=== PATIENT | female | born 1985 | race Caucasian/White ===

== ENCOUNTER 2018-06-05 18:28 | Emergency (ER) | payer OTHER ==
[~2018-06-05 18:28] MED LIST: ACE325 PO; ALB18R INH; BIRTH CONTROL; CETI-176 PO; CIPR-326 PO; CLON-331 PO; DIPH-740 PO; ERYOO OU; ESCI20TA38 PO; ETON1VAG7 VG; FLUO40CA76 PO; HYDR-4228 PO; IBUP-1618 PO; IBUP800T37 PO; KET10; LAMO200T45 PO; LISD40PT PO; LOR5/325 PO; LORA-802 PO; METHY10 PO; MIDO10TA PO; NAPR-1043 PO; ONDA4TAB SL; OXYC-865 PO; PROZAC; VAL500 PO; VALTREX
--- NOTE | 2018-06-05 18:42 | ER Report ---
History and Physical Time Seen By MD: 18:38 Hx. of Stated Complaint: STOOD UP UNDERNIETH A SHELF, HIT HEAD, VOMITED, DIZZY. THIS HAPPENED ON SUNDAY NIGHT. DIZZY WON'T GO AWAY, HEADACHE HPI/ROS CHIEF COMPLAINT: Head injury HISTORY OF PRESENT ILLNESS: This is a 33-year-old female who presents to the emergency department for a head injury. Patient states that this past Sunday around 5:45 in the morning she had a backpack on her shoulder at work stood up and hit her head on the side of a cabinet, patient is unsure if she actually had a positive LOC. Since then the patient has had increased left temporal discomfort, she did have one episode of vomiting immediately after the injury. According to the patient's spouse at the bedside she had an additional 2-3 episodes of vomiting later that day. Patient does not recall those episodes. Patient states she's had some increased confusion and memory impairment this week. Patient does have a small abrasion to the left parietal region at the hairline. She is unsure if this is related to the injury or if this is related to the lack of sleep. Patient denies fevers or chills. No chest pain or shortness of breath. REVIEW OF SYSTEMS: Constitutional: No fever, no chills. Eyes: No discharge. ENT: No sore throat. Cardiovascular: No chest pain, no palpitations. Respiratory: No cough, no shortness of breath. Gastrointestinal: As above. Genitourinary: No hematuria. Musculoskeletal: No back pain. Skin: No rashes. Neurological: As above. Allergies: Coded Allergies: No Known Drug Allergies (Verified , 06/05/18) Home Meds Reported Medications Clonazepam (CLONAZEPAM) 0.5 Mg Tablet, 0.5 MG PO BID, #6 TAB 01/29/18 Albuterol Sulfate (VENTOLIN HFA) 18 Gm Inh, 1-2 PUFF INH 3-4XD, INH 01/29/18 Cetirizine Hcl (ZYRTEC) 10 Mg Tablet, 10 MG PO PRN, TAB 12/20/15 Lisdexamfetamine Dimesylate (VYVANSE) 40 Mg Capsule, 40 MG PO QAM, CAPSULE 12/20/15 Lamotrigine (LAMOTRIGINE) 200 Mg Tablet, 200 MG PO QHS 12/20/15 Hydroxyzine Hcl (HYDROXYZINE HCL) 50 Mg Tablet, 50 MG PO QHS 12/20/15 Diphenhydramine Hcl (BENADRYL) 25 Mg Capsule, 2 CAP PO QHS, CAPSULE 12/20/15 Loratadine (Claritin) 10 Mg Tablet, 10 MG PO PRN, 0 Refills 07/24/09 Past Medical/Surgical History The patient has a past medical and surgical history of migraines, low blood pressure, asthma, IBS, chronic neck pain, wears glasses, genital herpes, colonoscopy, lymph node biopsy, tonsillectomy. Reviewed Nurses Notes: Yes Hx Smoking: No Smoking Status: Never Smoker Exposure to Second Hand Smoke?: No Hx Substance Use Disorder: No Hx Alcohol Use: Yes (OCC TO FREQ) Constitutional Vital Sign - Last 24 Hours 06/05/18 06/05/18 18:36 21:09 Temp 97.8 Pulse 71 75 Resp 14 16 B/P (MAP) 125/88 131/87 (102) Pulse Ox 94 100 O2 Delivery Room Air Room Air Physical Exam General Appearance: The patient is alert, has no immediate need for airway protection and no signs of toxicity. Eyes: Patient has anisocoria, the left pupil is smaller than the right, the left pupil measuring approximately 3 mm, the right measuring 4. They are both round and reactive to light and accommodation. EOMs intact, no nystagmus. No injection or pallor. ENT, Mouth: Mucous membranes are moist. Respiratory: There are no retractions, lungs are clear to auscultation. Cardiovascular: Regular rate and rhythm, no murmurs, clicks or rubs. Gastrointestinal: Abdomen is soft and non tender, no masses, bowel sounds normal. Neurological: Alert and oriented 4. Moving all extremities. Following all commands. No focal neuro deficits. Cranial nerves II through XII intact. GCS 15. Skin: Warm and dry, no rashes. Musculoskeletal: Neck is supple non tender. Extremities are nontender, nonswollen and have full range of motion. DIFFERENTIAL DIAGNOSIS: After history and physical exam differential diagnosis was considered for headache including but not limited to subarachnoid hemorrhage, concussion, migraine headache, tension headache and infectious causes such as meningitis, pharyngitis and sinusitis. Medical Decision Making EKG/Imaging Imaging HEAD CT: Indication: Injury. Technique: Contiguous axial sections were obtained from the base to the vertex without contrast enhancement. One of the following dose optimization techniques was utilized in the performance of this exam: Automated exposure control; adjustment of the mA and/or kV according to the patient's size; or use of an iterative reconstruction technique. Specific details can be referenced in the facility's radiology CT exam operational policy. Comparison: None. Findings: There is no evidence of intra-axial or extra-axial hemorrhage. No focal areas of decreased or increased attenuation are identified. There is no evidence of mass, edema, or shift of the midline structures. The size, shape, and configuration of the ventricular system are normal. The skeletal structures are intact and unremarkable. There is no evidence of fracture or other acute deformity. The visualized paranasal sinuses and mastoid air cells are clear. Impression: Unremarkable unenhanced head CT. Report Dictated By: Alvarado Mann MD at 06/05/2018 8:06 PM Report E-Signed By: Alvarado Mann MD at 06/05/2018 8:09 PM WSN:[id number] ED Course/Re-evaluation ED Course The patient was admitted to room. A history and physical were obtained. Differential diagnoses were considered. He CT of the brain was negative for any acute intracranial process. I did review the CT report with the patient. I did tell her that this is likely a concussion and will take some time to resolve. I did tell the patient that she should take the next 2 days off of work, minimize screen time and get as much sleep as possible. Patient expressed understanding. Patient denied need for pain medication. Patient was encouraged to return to the ER for any other concerns or worsening symptoms. Decision to Disposition Date: Jun 05, 2018 Decision to Disposition Time: 20:53 Depart Departure Latest Vital Signs Vital Signs Date Time Temp Pulse Resp B/P (MAP) Pulse Ox O2 Delivery O2 Flow Rate FiO2 06/05/18 21:09 75 16 131/87 (102) 100 Room Air 06/05/18 18:36 97.8 Impression: Primary Impression: Concussion Condition: Improved Disposition: HOME OR SELF-CARE Referrals: NAN VALENTIN MD (PCP) Patient Instructions: Concussion (ED) Additional Instructions: My recommendation is to take at least 2 days off of work, plenty of brain rest for the next 2 days, minimize screen time. Drink plenty of water. Get plenty of rest. Continue with your current medications. Try Tylenol for headaches in lieu of ibuprofen. Return to the ER for any other concerns or worsening symptoms. Problem Qualifiers Primary Impression: Concussion Encounter type: initial encounter Loss of consciousness presence/duration: with LOC of unspecified duration Qualified Codes: S06.0X9A - Concussion with loss of consciousness of unspecified duration, initial encounter JEISON ALVES ASSISTANT OPERATOR-BC Jun 05, 2018 18:42
--- NOTE | 2018-06-05 20:13 | RADIOLOGY IMAGING REPORT ---
FACILITY: [facility] PATIENT NAME: Deanna Blanton : 1985 MR: [id number] V: [id number] EXAM DATE: ORDERING PHYSICIAN: JEISON ALVES TECHNOLOGIST: Location: [facility] Patient: Deanna Blanton : 1985 Visit/Account:[id number] Date of Sevice: 06/05/[address]: Indication: Injury. Technique: Contiguous axial sections were obtained from the base to the vertex without contrast enhan cement. One of the following dose optimization techniques was utilized in the performance of this exam: Autom ated exposure control; adjustment of the mA and/or kV according to the patient's size; or use of an i terative reconstruction technique. Specific details can be referenced in the facility's radiology CT exam operational policy. Comparison: None. Findings: There is no evidence of intra-axial or extra-axial hemorrhage. No focal areas of decreased or increased attenuation are identified. There is no evidence of mass, edema, or shift of the midline structures. The size, shape, and configuration of the ventricular system are normal. The skeletal st ructures are intact and unremarkable. There is no evidence of fracture or other acute deformity. The visualized paranasal sinuses and mastoid air cells are clear. Impression: Unremarkable unenhanced head CT. Report Dictated By: Alvarado Mann MD at 06/05/2018 8:06 PM Report E-Signed By: Alvarado Mann MD at 06/05/2018 8:09 PM WSN:[id number]
[2018-06-05 21:09] VITALS: BP 131/87
== END 2018-06-05 21:16 | disposition home or self-care (01) ==
LOC: ER 18:53
DX: S06.0X9A Concussion with loss of consciousness of unspecified duration, initial encounter (principal)
CPT/HCPCS: 70450; 99284

== ENCOUNTER 2018-06-20 09:18 | Emergency (ER) | payer OTHER ==
[2018-06-20 09:22] VITALS: BP 118/76
--- NOTE | 2018-06-20 09:23 | ER Report ---
History and Physical Time Seen By MD: 09:23 HPI/ROS CHIEF COMPLAINT: Follow-up head injury HISTORY OF PRESENT ILLNESS: Patient was seen on June 04 status post a head injury. Review the electronic medical record shows the patient was seen after head injury that occurred around 5:45 in the morning when she stood up and hit her head on the side of a cabinet. It was questionable loss of consciousness. She had had multiple episodes of vomiting later that day. She had some confusion and memory impairment. Her evaluation at that time had a CT scan of the head which was negative for acute pathology. Patient states he's had persistent symptoms including disequilibrium, cognitive impairment nausea. Currently she denies any specific pain or nausea but just feels "off". The symptoms have persisted now she returns to the emergency department for reevaluation. REVIEW OF SYSTEMS: Constitutional: No fever, no chills. Eyes: No discharge. ENT: No sore throat. Cardiovascular: No chest pain, no palpitations. Respiratory: No cough, no shortness of breath. Gastrointestinal: No abdominal pain, no vomiting. Nausea Genitourinary: No hematuria. Musculoskeletal: No back pain. Skin: No rashes. Neurological: Postconcussive syndrome Allergies: Coded Allergies: No Known Drug Allergies (Verified , 06/05/18) Home Meds Active Scripts Ondansetron Hcl (ZOFRAN) 4 Mg Tablet, 4 MG PO Q8H for Nausea, #15 TAB 0 Refills Prov:BRYANNA BUTLER MD 06/20/18 Meclizine Hcl (MECLIZINE HCL) 25 Mg Tablet, 25 MG PO Q8H for vertigo, #20 TAB 0 Refills Prov:BRYANNA BUTLER MD 06/20/18 Reported Medications Clonazepam (CLONAZEPAM) 0.5 Mg Tablet, 0.5 MG PO BID, #6 TAB 01/29/18 Albuterol Sulfate (VENTOLIN HFA) 18 Gm Inh, 1-2 PUFF INH 3-4XD, INH 01/29/18 Cetirizine Hcl (ZYRTEC) 10 Mg Tablet, 10 MG PO PRN, TAB 12/20/15 Lisdexamfetamine Dimesylate (VYVANSE) 40 Mg Capsule, 40 MG PO QAM, CAPSULE 12/20/15 Lamotrigine (LAMOTRIGINE) 200 Mg Tablet, 200 MG PO QHS 3/14/16 Hydroxyzine Hcl (HYDROXYZINE HCL) 50 Mg Tablet, 50 MG PO QHS 12/20/15 Diphenhydramine Hcl (BENADRYL) 25 Mg Capsule, 2 CAP PO QHS, CAPSULE 12/20/15 Loratadine (Claritin) 10 Mg Tablet, 10 MG PO PRN, 0 Refills 07/24/09 Past Medical/Surgical History The patient has a past medical and surgical history of migraines, low blood pressure, asthma, IBS, chronic neck pain, wears glasses, genital herpes, colonoscopy, lymph node biopsy, tonsillectomy. Hx Smoking: No Smoking Status: Never Smoker Exposure to Second Hand Smoke?: No Hx Substance Use Disorder: No Hx Alcohol Use: Yes (OCC TO FREQ) Constitutional Vital Sign - Last 24 Hours 06/20/18 09:22 Temp 98.4 Pulse 65 Resp 16 B/P (MAP) 118/76 Pulse Ox 96 O2 Delivery Room Air Physical Exam General Appearance: The patient is alert, has no immediate need for airway protection and no current signs of toxicity. Eyes: Pupils equal and round no injection. Extraocular muscles are intact and symmetrical Respiratory: Chest is non tender, lungs are clear to auscultation. Cardiac: regular rate and rhythm Gastrointestinal: Abdomen is soft and non tender, no masses, bowel sounds normal. Musculoskeletal: Neck: Neck is supple and non tender. Extremities have full range of motion and are non tender. Skin: No rashes or lesions. Medical Decision Making ED Course/Re-evaluation ED Course 06/20/2018 9:30:50 am patient with persistent concussion-like symptoms including cognitive impairment, disequilibrium, episodic nausea. Plan at this time will be noncontrast MRI of the brain. Patient will likely require follow-up for a postconcussive syndrome. Decision to Disposition Date: Jun 20, 2018 Decision to Disposition Time: 10:42 Depart Departure Latest Vital Signs Vital Signs Date Time Temp Pulse Resp B/P (MAP) Pulse Ox O2 Delivery O2 Flow Rate FiO2 06/20/18 09:22 98.4 65 16 118/76 96 Room Air Impression: Primary Impression: Post concussion syndrome Condition: Condition Unchanged Disposition: HOME OR SELF-CARE Referrals: NAN VALENTIN MD (PCP) New Scripts Ondansetron Hcl (ZOFRAN) 4 Mg Tablet 4 MG PO Q8H for Nausea, #15 TAB 0 Refills Prov: BRYANNA BUTLER MD 06/20/18 Meclizine Hcl (MECLIZINE HCL) 25 Mg Tablet 25 MG PO Q8H for vertigo, #20 TAB 0 Refills Prov: BRYANNA BUTLER MD 06/20/18 Departure Forms: ER Transition Record, Medications Reconciliation, Off Wo rk/School Form, School or Work Release?: Work Number of days to be released: 2 Patient Portal Information Patient Instructions: Post Concussion Syndrome (ED) Additional Instructions: [address] [facility] Sports Medicine Open [address] [place] [address], [facility] [address], [place]azo Call to schedule follow up appointment for post concussive syndrome BRYANNA BUTLER MD Jun 20, 2018 09:23
--- NOTE | 2018-06-20 10:31 | RADIOLOGY IMAGING REPORT ---
FACILITY: [facility] [place] PATIENT NAME: Deanna Blanton : 1985 MR: [id number] V: [id number] EXAM DATE: ORDERING PHYSICIAN: BRYANNA BUTLER TECHNOLOGIST: Location: [facility] [place] Patient: Deanna Blanton : 1985 Visit/Account:[id number] Date of Sevice: 06/20/2018 BRAIN W/O CONTRAST Comparisons: Head CT scan without contrast dated June 05, 2018 Additional pertinent history: Post concussive symptoms TECHNIQUE: Multiplanar, multisequence brain MRI was performed without gadolinium contrast. FINDINGS: Sagittal midline structures and craniocervical junction: Negative. Midline shift: None. Ventricles: Negative. Brain parenchyma: Diffusion weighted imaging: Negative. Gradient sequence: Negative. T2 weighted FLAIR images: Negative. Extra-axial spaces: Negative. Dural venous sinuses and major arterial flow voids: Negative. Mastoid air cells and paranasal sinuses: Negative. Surrounding soft tissues and orbits: Negative. Impression: Normal brain MRI without contrast. Report Dictated By: Clemente Wlalace MD at 06/20/2018 10:25 AM Report E-Signed By: Clemente Wallace MD at 06/20/2018 10:27 AM [id number]
[2018-06-20] MEDS ORDERED: MECL25TA9 PO (10:41)
[2018-06-20] MEDS ORDERED: ONDA4TAB97 PO (10:41)
== END 2018-06-20 10:52 | disposition home or self-care (01) ==
LOC: ER 09:20
DX: F07.81 Postconcussional syndrome (principal)
CPT/HCPCS: 70551; 99284

== ENCOUNTER → 2018-07-18 | Outpatient (CLI) | payer OTHER ==
[~2018-07-18] MED LIST changes: +CAFF200T69 PO; +CHOL500045 PO; +CLOB15OI16 TP; +FLAX100029 PO; +FLU60VIA41 IM; +FLUC150T40 PO; +KET10 PO; +MECL25TA9 PO; +MULT1CAP59 PO; +NALT50TA15 PO; +ONDA4TAB97 PO; +SERT25TA87 PO; +VALA500T66 PO
== END ==
LOC: LAB 10:16
PROVIDERS: ATTEND Obstetrics & Gynecology
DX: B37.3 Candidiasis of vulva and vagina (principal); N89.8 Other specified noninflammatory disorders of vagina
CPT/HCPCS: 87210

== ENCOUNTER → 2018-10-18 | Outpatient (CLI) | payer OTHER ==
[~2018-10-18] MED LIST changes: +ACET500T68 PO; +DIPH-911 PO; +FAMO-67 PO; +FOLI200T11 PO; +LIS50 PO; +PREN-127 PO; +PSEU60TA80 PO; +PYRI100T57 PO; +SERT-1 PO; +UBID100C48 PO
[2018-10-18 10:22] LABS: PLATELET COUNT, AUTOMATED 391 K/uL (150-450)
== END ==
LOC: LAB 09:47
PROVIDERS: ATTEND Obstetrics & Gynecology
DX: Z34.91 Encounter for supervision of normal pregnancy, unspecified, first trimester (principal)
CPT/HCPCS: 36415; 81001; 85025; 86592; 86703; 86762; 86850; 86900; 86901; 87088; 87340

== ENCOUNTER 2018-11-21 06:34 | Emergency (ER) | payer OTHER ==
--- NOTE | 2018-11-21 06:41 | ER Report ---
History and Physical Time Seen By MD: 06:40 (BRYANNA BUTLER MD) HPI/ROS CHIEF COMPLAINT: Dehydration HISTORY OF PRESENT ILLNESS: Patient was seen by Dr. Nan Bradley on 10/18/2018 for initial OB visit 1st trimester ultrasound was performed which showed an intrauterine at 7 weeks 5 days gestation. Estimated date of conf inement is 06/01/2019. Patient has a history of genital herpes and there was discussion at that visit about starting antiviral suppression. Patient also has a history of psychiatric issues and is followed as an outpatient for bipolar disorder, anxiety and ADHD. Patient now presents to the emergency department with complaint of "dehydration". Patient states over the past 3 days she's been having nausea along with decreased appetite and vomiting specifically more in the morning. Patient works night shifts at the [employer] and states that she felt ill this morning so she decided to come to the emergency department. Routine OB is actually scheduled for tomorrow. Patient denies any fever she denies flulike symptoms such as fever or headache or body aches. REVIEW OF SYSTEMS: Constitutional: No fever, no chills. Eyes: No discharge. ENT: No sore throat. Cardiovascular: No chest pain, no palpitations. Respiratory: No cough, no shortness of breath. Gastrointestinal: No abdominal pain, nausea with vomiting and a few episodes of watery diarrhea Genitourinary: No hematuria. Musculoskeletal: No back pain. Skin: No rashes. Neurological: No headache. (BRYANNA BUTLER MD) Allergies: Coded Allergies: No Known Drug Allergies (Verified , 11/21/18) Home Meds Active Scripts Ondansetron 4 Mg Odt (ONDANSETRON 4 MG ODT) 4 Mg Tab.rapdis, 4 MG PO Q8H PRN for nausea, #20 TAB Prov:BRYANNA PENNINGTON MD 11/21/18 Fluconazole (DIFLUCAN) 150 Mg Tablet, 150 MG PO NOW, #1 TAB 0 Refills Prov:NAN BRADLEY MD 10/23/18 Ondansetron Hcl (ZOFRAN) 4 Mg Tablet, 4 MG PO Q6H PRN for nausea, #30 TAB 0 Refills Prov:NAN BRADLEY MD 10/23/18 Valacyclovir Hcl (VALTREX) 500 Mg Tablet, 500 MG PO BID, #6 TAB 4 Refills Take one tablet po BID for 3 days upon initial symptoms of HSV outbreak Prov:NAN BRADLEY MD 07/18/18 Reported Medications Acetaminophen (TYLENOL EXTRA STRENGTH) 500 Mg Tablet, 500 MG PO PRN, TAB 10/18/18 Famotidine (FAMOTIDINE) 20 Mg Tablet, 20 MG PO PRN, TAB 10/18/18 Pseudoephedrine Hcl (PSEUDOEPHEDRINE HCL) 60 Mg Tablet, 60 MG PO DAILY 10/18/18 Lisdexamfetamine Dimesylate (VYVANSE) 50 Mg Capsule, 50 MG PO QDAY, CAPSULE 10/18/18 Sertraline Hcl (ZOLOFT) 50 Mg Tablet, 1 TAB PO QDAY, TAB 10/18/18 Pyridoxine Hcl (VITAMIN B-6) 100 Mg Tablet, 100 MG PO BID 10/18/18 Diphenhydramine Hcl (UNISOM) 50 Mg Capsule, 50 MG PO QHS, CAPSULE 10/18/18 Ubidecarenone (COQ-10) 100 Mg Capsule, 150 MG PO, CAPSULE 10/18/18 Folic Acid/Multivit-Minerals (Women's Multivitamin Gummies) 200 Mcg Tab.chew, 1 EACH PO DAILY 10/18/18 Vits W-Ca,Fe,Fa(<1MG) ( VITAMINS) 1 Each Tablet, 1 EACH PO DAILY, TAB 10/18/18 Cholecalciferol (Vitamin D3) (VITAMIN D) 5,000 Unit Tablet, 8000 UNIT PO DAILY 07/18/18 Flaxseed Oil (FLAXSEED OIL) 1,000 Mg Capsule, 1400 MG PO DAILY, CAPSULE 07/18/18 Multivitamin (MULTIVITAMINS) 1 Each Capsule, 1 EACH PO, CAPSULE 07/18/18 Caffeine (CAFFEINE) 200 Mg Tablet, 100 MG PO QDAY 07/18/18 Clonazepam (CLONAZEPAM) 0.5 Mg Tablet, 0.5 MG PO BID, #6 TAB 01/29/18 Albuterol Sulfate (VENTOLIN HFA) 18 Gm Inh, 1-2 PUFF INH 3-4XD, INH 01/29/18 Cetirizine Hcl (ZYRTEC) 10 Mg Tablet, 10 MG PO PRN, TAB 12/20/15 Lamotrigine (LAMOTRIGINE) 200 Mg Tablet, 200 MG PO QHS 12/20/15 Hydroxyzine Hcl (HYDROXYZINE HCL) 50 Mg Tablet, 50 MG PO QHS 50-100 mg PO prn 12/20/15 Loratadine (Claritin) 10 Mg Tablet, 10 MG PO PRN, 0 Refills 07/24/09 Discontinued Scripts Clobetasol Propionate (CLOBETASOL PROPIONATE) 15 Gm Oint...g., 1 RONDA TP DAILY, #1 TUBE 2 Refills Apply once daily to affected area Prov:NAN BRADLEY MD 07/18/18 Past Medical/Surgical History History of ADHD, bipolar disorder (BRYANNA BUTLER MD) Hx Smoking: No Smoking Status: Never Smoker Exposure to Second Hand Smoke?: No Hx Substance Use Disorder: No Hx Alcohol Use: Yes (OCC TO FREQ) (BRYANNA BUTLER MD) Constitutional Vital Sign - Last 24 Hours 11/21/18 11/21/18 11/21/18 11/21/18 06:34 06:38 06:39 07:00 Temp 98.4 Pulse 81 79 Resp 16 B/P (MAP) 124/89 (101) 124/89 112/81 (91) Pulse Ox 93 97 O2 Delivery Room Air 11/21/18 11/21/18 11/21/18 11/21/18 07:04 07:30 07:34 08:00 Pulse 79 69 B/P (MAP) 103/68 (80) 120/76 (91) Pulse Ox 97 100 11/21/18 08:04 Pulse 72 Pulse Ox 96 (BRYANNA PENNINGTON MD) Physical Exam General Appearance: The patient is alert, has no immediate need for airway protection and no signs of toxicity. [ ] Eyes: Pupils equal and round no pallor or injection. ENT, Mouth: Mucous membranes are moist. Respiratory: There are no retractions, lungs are clear to auscultation. Cardiovascular: Regular rate and rhythm. [ ] Gastrointestinal: Abdomen is soft and non tender, no masses, bowel sounds normal. Neurological: Awake alert Skin: Warm and dry, no rashes. Musculoskeletal: Neck is supple non tender. Extremities are nontender, nonswollen and have full range of motion. (BRYANNA BUTLER MD) Medical Decision Making Data Points Result Diagram: 11/21/18 0645 11/21/18 0645 Laboratory Hematology Test 11/21/18 06:45 11/21/18 07:57 Red Blood Count 4.46 M/uL (4.17-5.56) Mean Corpuscular Volume 89.1 fL (80.0-96.0) Mean Corpuscular Hemoglobin 30.3 pg (26.0-33.0) Mean Corpuscular Hemoglobin Concent 34.0 g/dL (32.0-36.0) Red Cell Distribution Width 13.2 % (11.5-14.5) Mean Platelet Volume 7.6 fL (7.2-11.1) Neutrophils (%) (Auto) 70.2 % (39.4-72.5) Lymphocytes (%) (Auto) 21.2 % (17.6-49.6) Monocytes (%) (Auto) 7.2 % (4.1-12.4) Eosinophils (%) (Auto) 0.7 % (0.4-6.7) Basophils (%) (Auto) 0.7 % (0.3-1.4) Nucleated RBC Relative Count (auto) 0.0 /100WBC Neutrophils # (Auto) 8.8 K/uL (2.0-7.4) Lymphocytes # (Auto) 2.7 K/uL (1.3-3.6) Monocytes # (Auto) 0.9 K/uL (0.3-1.0) Eosinophils # (Auto) 0.1 K/uL (0.0-0.5) Basophils # (Auto) 0.1 K/uL (0.0-0.1) Nucleated RBC Absolute Count (auto) 0.00 K/uL Sodium Level 134 mmol/L (137-145) Potassium Level 3.3 mmol/L (3.5-5.0) Chloride Level 101 mmol/L (98-107) Carbon Dioxide Level 21 mmol/L (22-31) Blood Urea Nitrogen 7 mg/dl (7-18) Creatinine 0.50 mg/dl (0.52-1.04) Glomerular Filtration Rate Calc > 60.0 Random Glucose 89 mg/dl (75-110) Calcium Level 9.4 mg/dl (8.4-10.2) Total Bilirubin 0.3 mg/dl (0.2-1.3) Aspartate Amino Transf (AST/SGOT) 16 U/L (0-35) Alanine Aminotransferase (ALT/SGPT) 14 U/L (0-56) Alkaline Phosphatase 66 U/L (0-126) Total Protein 7.8 g/dl (6.3-8.2) Albumin 4.4 g/dl (3.5-5.0) Urine Color Yellow Urine Clarity Clear Urine pH 5.0 pH (4.8-9.5) Urine Specific Weare 1.015 Urine Protein Negative mg/dL (NEGATIVE) Urine Glucose (UA) Negative mg/dL (NEGATIVE) Urine Ketones Negative mg/dL (NEGATIVE) Urine Blood Negative (NEGATIVE) Urine Nitrite Negative (NEGATIVE) Urine Bilirubin Negative (NEGATIVE) Urine Urobilinogen Negative mg/dL (0.2-1.9) Urine Leukocyte Esterase Negative (NEGATIVE) Urine RBC 1 /HPF (0-2/HPF) Urine WBC <1 /HPF (0-5/HPF) Urine Squamous Epithelial Cells Many /LPF (</=FEW) Urine Bacteria Negative /HPF (NONE-FEW) Urine Mucus Few /HPF (NONE-FEW) Chemistry Test 11/21/18 06:45 11/21/18 07:57 White Blood Count 12.6 k/uL (4.5-11.0) Red Blood Count 4.46 M/uL (4.17-5.56) Hemoglobin 13.5 g/dL (12.0-16.0) Hematocrit 39.7 % (34.0-47.0) Mean Corpuscular Volume 89.1 fL (80.0-96.0) Mean Corpuscular Hemoglobin 30.3 pg (26.0-33.0) Mean Corpuscular Hemoglobin Concent 34.0 g/dL (32.0-36.0) Red Cell Distribution Width 13.2 % (11.5-14.5) Platelet Count 385 K/uL (150-450) Mean Platelet Volume 7.6 fL (7.2-11.1) Neutrophils (%) (Auto) 70.2 % (39.4-72.5) Lymphocytes (%) (Auto) 21.2 % (17.6-49.6) Monocytes (%) (Auto) 7.2 % (4.1-12.4) Eosinophils (%) (Auto) 0.7 % (0.4-6.7) Basophils (%) (Auto) 0.7 % (0.3-1.4) Nucleated RBC Relative Count (auto) 0.0 /100WBC Neutrophils # (Auto) 8.8 K/uL (2.0-7.4) Lymphocytes # (Auto) 2.7 K/uL (1.3-3.6) Monocytes # (Auto) 0.9 K/uL (0.3-1.0) Eosinophils # (Auto) 0.1 K/uL (0.0-0.5) Basophils # (Auto) 0.1 K/uL (0.0-0.1) Nucleated RBC Absolute Count (auto) 0.00 K/uL Glomerular Filtration Rate Calc > 60.0 Calcium Level 9.4 mg/dl (8.4-10.2) Total Bilirubin 0.3 mg/dl (0.2-1.3) Aspartate Amino Transf (AST/SGOT) 16 U/L (0-35) Alanine Aminotransferase (ALT/SGPT) 14 U/L (0-56) Alkaline Phosphatase 66 U/L (0-126) Total Protein 7.8 g/dl (6.3-8.2) Albumin 4.4 g/dl (3.5-5.0) Urine Color Yellow Urine Clarity Clear Urine pH 5.0 pH (4.8-9.5) Urine Specific Weare 1.015 Urine Protein Negative mg/dL (NEGATIVE) Urine Glucose (UA) Negative mg/dL (NEGATIVE) Urine Ketones Negative mg/dL (NEGATIVE) Urine Blood Negative (NEGATIVE) Urine Nitrite Negative (NEGATIVE) Urine Bilirubin Negative (NEGATIVE) Urine Urobilinogen Negative mg/dL (0.2-1.9) Urine Leukocyte Esterase Negative (NEGATIVE) Urine RBC 1 /HPF (0-2/HPF) Urine WBC <1 /HPF (0-5/HPF) Urine Squamous Epithelial Cells Many /LPF (</=FEW) Urine Bacteria Negative /HPF (NONE-FEW) Urine Mucus Few /HPF (NONE-FEW) Urinalysis Test 11/21/18 07:57 Urine Color Yellow Urine Clarity Clear Urine pH 5.0 pH (4.8-9.5) Urine Specific Weare 1.015 Urine Protein Negative mg/dL (NEGATIVE) Urine Glucose (UA) Negative mg/dL (NEGATIVE) Urine Ketones Negative mg/dL (NEGATIVE) Urine Blood Negative (NEGATIVE) Urine Nitrite Negative (NEGATIVE) Urine Bilirubin Negative (NEGATIVE) Urine Urobilinogen Negative mg/dL (0.2-1.9) Urine Leukocyte Esterase Negative (NEGATIVE) Urine RBC 1 /HPF (0-2/HPF) Urine WBC <1 /HPF (0-5/HPF) Urine Squamous Epithelial Cells Many /LPF (</=FEW) Urine Bacteria Negative /HPF (NONE-FEW) Urine Mucus Few /HPF (NONE-FEW) (BRYANNA PENNINGTON MD) ED Course/Re-evaluation ED Course 11/21/2018 6:55:30 am bedside ultrasound confirms intrauterine with positive movement. Heart rate 150 bpm. Decision to Disposition Date: Nov 21, 2018 Decision to Disposition Time: 09:00 (BRYANNA BUTLER MD) ED Course Pt improves, tolerating po at discharge, no e/o hyperemesis gravidarum. Decision to Disposition Date: Nov 21, 2018 Decision to Disposition Time: 08:35 (BRYANNA PENNINGTON MD) Depart Departure Latest Vital Signs Vital Signs Date Time Temp Pulse Resp B/P (MAP) Pulse Ox O2 Delivery O2 Flow Rate FiO2 11/21/18 08:04 72 96 11/21/18 08:00 120/76 (91) 11/21/18 06:39 98.4 16 Room Air (BRYANNA PENNINGTON MD) Impression: Primary Impression: Vomiting or nausea of Condition: Improved Disposition: HOME OR SELF-CARE Referrals: NAN BRADLEY MD (PCP) 2 Days New Scripts Ondansetron 4 Mg Odt (ONDANSETRON 4 MG ODT) 4 Mg Tab.rapdis 4 MG PO Q8H PRN for nausea, #20 TAB Prov: BRYANNA PENNINGTON MD 11/21/18 Departure Forms: ER Transition Record, Medications Reconciliation, Off Work/School Form, School or Work Release?: Work Number of days to be released: 1 Patient Portal Information Patient Instructions: Nausea and Vomiting in (ED) Additional Instructions: Please return if vomiting and unable to tolerate fluids, feeling worse, or for other concerns. BRYANNA BUTLER MD Nov 21, 2018 06:41 BRYANNA PENNINGTON MD Nov 21, 2018 08:36
[2018-11-21] MEDS ORDERED: NS(*) 0.9% 1000 ML BAG 1,000 ML IV ONE (07:00)
[2018-11-21] MEDS ORDERED: ONDANSETRON 4 MG/2 ML VIAL IVP ONE ×2 (07:00→08:30)
[2018-11-21 07:06] LABS: PLATELET COUNT, AUTOMATED 385 K/uL (150-450)
[2018-11-21 08:30] VITALS: BP 103/73
[2018-11-21] MEDS ORDERED: ONDA4TAB9 PO (08:34)
== END 2018-11-21 09:01 | disposition home or self-care (01) ==
LOC: ER 06:50
DX: O21.9 Vomiting of pregnancy, unspecified (principal); Z3A.01 Less than 8 weeks gestation of pregnancy
CPT/HCPCS: 81001; 85025; 96361; 96374; 96376; 99284; J2405; J7030; 82040; 82247; 82310; 82374; 82435; 82565; 82947; 84075; 84132; 84155; 84295; 84450; 84460; 84520

== ENCOUNTER 2018-12-17 08:09 | Outpatient (RCR) | payer OTHER ==
[~2018-12-17 08:09] MED LIST changes: +ONDA4TAB9 PO; +PROM-110 PO
--- NOTE | 2018-12-17 10:55 | Medical Nutrition Therapy ---
Nutrition Anthropometrics Height (Inches): 67 Weight (Pounds): 157 Dave Nutrition Score: Dave Nutrition Risk Score: Dietary Referral Nutrition Risk Factors: Nutrition Risk Comment: Nutrition/Food History Breakfast: 1./2 can spagetteo with meatballs Lunch: breaded fried fish patties, tartat sauce Dinner: meat, starch, veg, or fast food tacos, chicken nuggets, FF, pizza Snacks: 1 oz almonds, applecause, cheese sticks, Nutritional Education Nutrition Education Topic: Other (N/V with ) Learning Readiness: Interested Teaching Methods: Discussion, Handout, Demonstration Response to Teaching: Verbalize understanding Teaching Recipient: Patient, Significant Other Nutrition Counseling: Pt reporteng feeling hungary but then having N/V after eating. Typical day and 24 hr food recall indicating pt eating high fat foods which may be contributing to N/V. Pt reporting craving high fat. discused alternative foods to handle cravings. pt reporting very little veg intake with pt stating bitter foods and smells have contributed to N/V. Reviewed veg that would be easier tolerated and encoruaged pt to consume some veg with meals and snacks. Provided meal plan of 3 measl, 3 snacks totaling 15 CHO, 3 fat, 8oz lean to med fat meats which provided 50% kcal from CHI, 28% kcal from fat, 22% kcal from protein. provided contact info if pt had further questions or concerns. Nutrition Monitoring & Eval RD Patient Assessment Time: [address] Assessment Type: RD Education Nutritional Comment: provided 45 minutes MNT for nutrtional issues with high risk Copies To Copies to: NAN VALENTIN MD ; PANCHO HU Dec 17, 2018 10:55
== END 2019-01-21 ==
LOC: DIET 08:09
PROVIDERS: ATTEND Obstetrics & Gynecology
DX: O09.90 Supervision of high risk pregnancy, unspecified, unspecified trimester (principal)

== ENCOUNTER → 2019-02-25 | Outpatient (CLI) | payer OTHER ==
[~2019-02-25] MED LIST changes: +DIPH0.5S2 IM; +LAMO300T2 PO
[2019-02-25 16:26] LABS: PLATELET COUNT, AUTOMATED 397 K/uL (150-450)
== END ==
LOC: LAB 15:54
PROVIDERS: ATTEND Obstetrics & Gynecology
DX: O09.92 Supervision of high risk pregnancy, unspecified, second trimester (principal); O26.00 Excessive weight gain in pregnancy, unspecified trimester
CPT/HCPCS: 36415; 82040; 82247; 82310; 82374; 82435; 82565; 82947; 82950; 84075; 84132; 84155; 84295; 84443; 84450; 84460; 84520; 85025

== ENCOUNTER 2019-04-12 14:30 | Observation (INO) | payer MEDICAID ==
[~2019-04-12 14:30] MED LIST changes: +AMPH20TA18 PO; +OMEP-126 PO
[2019-04-12 15:13] VITALS: BP 133/80
--- NOTE | 2019-04-12 16:01 | History & Physical ---
History of Present Illness Age of Patient: 34 : 1 Para or TPAL: 0 EDC per LMP: Jun 01, 2019 EDC per U/S: Jun 01, 2019 Estimated Gestational Age: 32.6 Chief Complaint low back pain, increased pelvic pressure, and increased movement History of Present Illness Mrs. Blanton is a 34yo at 32.6, with NELLY of 06/01/2019 based on first trimester ultrasound. She presents to L&D triage with complaint of low back pain since mid-morning, lower abdominal pain described as "period cramps" and increased movement today. She reports that she was seen yesterday in [facility] and was kept for an NST because the heart rate was elevated to the 180s. The NST was normal in clinic, she received reassurance, and was sent home. She states that today she woke up feeling well, and then out of the blue started to have low back pain. She reports that she has had low back pain in the past, but usually only if she exerts herself, and she has not been doing any unusual activity. At about the same time that she noted the low back pain she started feeling "mild period cramps" in her low abdomen. She also reports that her baby has been much more active than usual. Mrs. Blanton denies dysuria or urgency. She reports having loose stools today and yesterday, which can be normal for her. She denies blood in her stool. She denies fevers/chills. Denies vaginal discharge, vaginal bleeding. She has no other symptoms. Antepartum Course: 1. Bipolar, ADHD, anxiety, followed by Caitlin Hernandez, on multiple meds, stable 2. Sees M for ultrasound due to multiple medications as above -known small muscular VSD, per rn pediatric okay to deliver in [place], plan for cardiac echo after -low, small right kidney, plan for renal ultrasound in first week of life 3. 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 Plans primary CD, has been counseled re: R/B/A History Patient's Blood Type: O Positive Rubella Status: Immune Group B Strep Screen: Unknown Miscellaneous Screens/Cultures: HIV neg, Hep B SAg neg, I hour GTT 100 Obstetrical History: primigravida Past Medical History: allergic rhinitis mild intermittent asthma endometriosis ADHD, anxiety, bipolar d/o tonsillectomy 05/2007 wisdom teeth removal 09/2007, molar extraction 2016 lapx with fulgeration of endometriosis, chromopertubation Lymph node bx 2010 Allergies: Coded Allergies: No Known Drug Allergies (Verified , 11/21/18) Social History: . Denies intimate partner violence. Works for [employer]. Denies tobacco, drug use. Occasional alcohol prior to . Family History: FH: breast cancer in first degree relative when <50 years old paternal grandmother FH: congestive heart failure paternal grandmother maternal grandmother FHx: heart disease maternal grandfather Med Rec Home Meds Active Scripts Promethazine Hcl (PROMETHAZINE HCL) 25 Mg Tablet, 25 MG PO Q8H PRN for nausea, #30 TAB 0 Refills Prov:NAN VALENTIN MD 11/27/18 Ondansetron Hcl (ZOFRAN) 4 Mg Tablet, 4 MG PO Q6H PRN for nausea, #30 TAB 1 Refill Prov:NAN VALENTIN MD 11/27/18 Reported Medications Amphet Asp/Amphet/D-Amphet (ADDERALL 20 MG TABLET) 20 Mg Tablet, 20 MG PO BID 04/11/19 Omeprazole (OMEPRAZOLE) 20 Mg Capsule.dr, 1 CAP PO BID, CAP 04/11/19 Lamotrigine (LAMOTRIGINE) 300 Mg Tab.er.24, 300 MG PO 01/24/19 Acetaminophen (TYLENOL EXTRA STRENGTH) 500 Mg Tablet, 500 MG PO PRN, TAB 10/18/18 Sertraline Hcl (ZOLOFT) 50 Mg Tablet, 1 TAB PO QDAY, TAB 10/18/18 Diphenhydramine Hcl (UNISOM) 50 Mg Capsule, 50 MG PO QHS, CAPSULE 10/18/18 Folic Acid/Multivit-Minerals (Women's Multivitamin Gummies) 200 Mcg Tab.chew, 1 EACH PO DAILY 10/18/18 Vits W-Ca,Fe,Fa(<1MG) ( VITAMINS) 1 Each Tablet, 1 EACH PO DAILY, TAB 10/18/18 Cholecalciferol (Vitamin D3) (VITAMIN D) 5,000 Unit Tablet, 8000 UNIT PO DAILY 07/18/18 Caffeine (CAFFEINE) 200 Mg Tablet, 100 MG PO QDAY 10/11/18 Albuterol Sulfate (VENTOLIN HFA) 18 Gm Inh, 1-2 PUFF INH 3-4XD, INH 01/29/18 Cetirizine Hcl (ZYRTEC) 10 Mg Tablet, 10 MG PO PRN, TAB 12/20/15 Hydroxyzine Hcl (HYDROXYZINE HCL) 50 Mg Tablet, 50 MG PO QHS 50-100 mg PO prn 12/20/15 Loratadine (Claritin) 10 Mg Tablet, 10 MG PO PRN, 0 Refills 07/24/09 Discontinued Reported Medications Lisdexamfetamine Dimesylate (VYVANSE) 50 Mg Capsule, 50 MG PO QDAY, CAPSULE 10/18/18 Review of Systems Constitutional: No Fever, No Weight Loss, No Weight Gain, No Chills, No Night Sweats, No Other Neurological: No Syncope, No Confusion, No Weakness, No Dizziness, No Slurred Speech, No Other Eyes: No Vision Change, No Loss of Vision, No Photophobia, No Other ENT: No Hearing Loss, No Sinus Congestion, No Sore Throat, No Ear Ache, No Tinnitus, No Other Cardiovascular: No Chest Pain, No Palpitations, No Orthostatic Hypotension, No Other Gastrointestinal: No Nausea, No Vomiting; Diarrhea (loose stool); No Dysphagia, No Constipation, No Early Satiety, No Hematemesis, No Hematochezia, No Melena; Abdominal Pain (crampy); No Other Genitourinary: No Dysuria, No Hematuria, No Urinary Incontinence, No Other Musculoskeletal: Pain (low back pain) Psychiatric: No Depression, No Anxiety, No Other Exam General Exam Vital Signs Vital Signs Date Time Temp Pulse Resp B/P (MAP) Pulse Ox O2 Delivery O2 Flow Rate FiO2 04/12/19 15:13 99.6 89 20 133/80 (97) 95 Room Air General Apperance: Alert/Awake/No Acute Distress Neuro: No Gross deficits Cardiovascular: Regular Rate and Rhythm Abdomen: Soft, Non-Tender, Non-Distended, Gravid - Non-Tender Extremities: No Cyanosis,Clubbing or Edema Integumentary: Skin Intact without Lesions or Rash Psychological: Alert & Oriented X3, Appropriate Mood & Affect Cervical Dialation: 0 Cervical Effacement (%): 0 Cervical Consistency: Firm Cervical Position: Mid Station: Ballotable Uterine Contractions(Q min): 0 Uterine Contraction Strength: Mild UC Resting Tone: Soft Fetus Feeling Movement?: Yes Heart Tones: 130 Heart Tone Variabilty: Moderate FHT Accelerations: 15X15 FHT Decelerations: None FHT Category: I Medical Decision Making Pre-Admit Course Medical Record Review: Yes VTE Prophylasis: Adult Deep Vein Thrombosis/Pulmonary: No Pharmacological Contraindicati: Pt at Low Risk for VTE Mechanical Contraindications: Pt at Low Risk for VTE Assessment and Plan 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 testing reassuring. No contractions on monitor. Cervical exam reassuring. UA neg. Transvaginal cervical length reassuring, therefore FFN not sent. Suspect mildly dehydrated given recent increase in diarrhea. Will allow discharge home with labor precautions. LUISANA PAREDES MD Apr 12, 2019 16:01
--- NOTE | 2019-04-12 16:55 | OB/GYN Discharge Summary ---
Discharge Summary Reason for Hosp/Final Diag: (1) Low back pain during in third trimester Status: Acute Hospital Course & Plan: 34yo at 32.6, well-dated, with low back pain, lower abdominal cramping, increased pelvic pressure, and increased movement. testing reassuring. No contractions on monitor. Cervical exam reassuring. UA neg. Transvaginal cervical length reassuring, therefore FFN not sent. Suspect mildly dehydrated given recent increase in diarrhea. Will allow discharge home with labor precautions. Lates Vital Signs Vital Signs Date Time Temp Pulse Resp B/P (MAP) Pulse Ox O2 Delivery O2 Flow Rate FiO2 04/12/19 15:13 99.6 89 20 133/80 (97) 95 Room Air Weight (Pounds): 157 Imaging normal transvaginal cervical length Condition: Improved Discharge: Home Home Meds Active Scripts Promethazine Hcl (PROMETHAZINE HCL) 25 Mg Tablet, 25 MG PO Q8H PRN for nausea, #30 TAB 0 Refills Prov:NAN VALENTIN MD 11/27/18 Ondansetron Hcl (ZOFRAN) 4 Mg Tablet, 4 MG PO Q6H PRN for nausea, #30 TAB 1 Refill Prov:NAN VALENTIN MD 11/27/18 Reported Medications Amphet Asp/Amphet/D-Amphet (ADDERALL 20 MG TABLET) 20 Mg Tablet, 20 MG PO BID 04/11/19 Omeprazole (OMEPRAZOLE) 20 Mg Capsule.dr, 1 CAP PO BID, CAP 04/11/19 Lamotrigine (LAMOTRIGINE) 300 Mg Tab.er.24, 300 MG PO 01/24/19 Acetaminophen (TYLENOL EXTRA STRENGTH) 500 Mg Tablet, 500 MG PO PRN, TAB 10/18/18 Sertraline Hcl (ZOLOFT) 50 Mg Tablet, 1 TAB PO QDAY, TAB 10/18/18 Diphenhydramine Hcl (UNISOM) 50 Mg Capsule, 50 MG PO QHS, CAPSULE 10/18/18 Folic Acid/Multivit-Minerals (Women's Multivitamin Gummies) 200 Mcg Tab.chew, 1 EACH PO DAILY 10/18/18 Vits W-Ca,Fe,Fa(<1MG) ( VITAMINS) 1 Each Tablet, 1 EACH PO DAILY, TAB 10/18/18 Cholecalciferol (Vitamin D3) (VITAMIN D) 5,000 Unit Tablet, 8000 UNIT PO DAILY 07/18/18 Caffeine (CAFFEINE) 200 Mg Tablet, 100 MG PO QDAY 07/18/18 Albuterol Sulfate (VENTOLIN HFA) 18 Gm Inh, 1-2 PUFF INH 3-4XD, INH 01/29/18 Cetirizine Hcl (ZYRTEC) 10 Mg Tablet, 10 MG PO PRN, TAB 12/20/15 Hydroxyzine Hcl (HYDROXYZINE HCL) 50 Mg Tablet, 50 MG PO QHS 50-100 mg PO prn 12/20/15 Loratadine (Claritin) 10 Mg Tablet, 10 MG PO PRN, 0 Refills 07/24/09 Discontinued Reported Medications Lisdexamfetamine Dimesylate (VYVANSE) 50 Mg Capsule, 50 MG PO QDAY, CAPSULE 10/18/18 Follow up with: [facility] [phone] Follow up in: Keep scheduled appoint Discharge Diet: As Tolerates Discharge Activity: As Tolerates Special Instructions: LUISANA PAREDES MD Apr 12, 2019 16:55
--- NOTE | 2019-04-12 17:15 | RADIOLOGY IMAGING REPORT ---
FACILITY: [facility] - [place] PATIENT NAME: Deanna Blanton : 1985 MR: [id number] V: [id number] EXAM DATE: ORDERING PHYSICIAN: LUISANA PAREDES TECHNOLOGIST: Location: [facility] [place] Patient: Deanna Blanton : 1985 Visit/Account:[id number] Date of Sevice: 04/12/2019 OB Ultrasound > 14 weeks limited HISTORY: Pelvic pressure. COMPARISON STUDIES: None available FINDINGS: Intrauterine gestations: one presentation: Cephalic heart rate: 124 bpm Amniotic fluid index: Not evaluated. Placenta: Anterior without previa. No focal abnormality. Uterus: gravid, otherwise normal Maternal adnexa: Not evaluated Cervix: 3.9 cm and closed. No appreciable funneling or focal abnormality. Gestational Parameters: Not obtained due to limited exam. Average age: 32 weeks and 6 days clinically. NELLY: 06/01/2019 clinically. Estimated weight (EFW): Not obtained due to limited exam. Anatomic Survey: Not performed due to limited exam. IMPRESSION: 1. Single live intrauterine gestation; estimated clinical age 32 weeks and 6 days. 2. No acute abnormality. 3. Cervix measures 3.9 cm and closed. 4. Other limited findings as above. Report Dictated By: Dva Melendez at 04/12/2019 5:06 PM Report E-Signed By: Dav Melendez at 04/12/2019 5:10 PM WSN:[id number]
== END 2019-04-12 16:54 | disposition home or self-care (01) ==
LOC: OB 14:30
PROVIDERS: ADMIT Obstetrics & Gynecology; ATTEND Obstetrics & Gynecology
DX: M54.5 Low back pain (principal); R10.2 Pelvic and perineal pain; Z33.1 Pregnant state, incidental; Z3A.32 32 weeks gestation of pregnancy; F31.9 Bipolar disorder, unspecified; F90.9 Attention-deficit hyperactivity disorder, unspecified type; F41.9 Anxiety disorder, unspecified; Z79.899 Other long term (current) drug therapy
CPT/HCPCS: 59025; 76817; 81001; G0378; G0379

== ENCOUNTER → 2019-05-07 | Outpatient (CLI) | payer SELFPAY | LOC: LAB 14:55 | PROVIDERS: ATTEND Obstetrics & Gynecology | DX: Z36.85 Encounter for antenatal screening for Streptococcus B (principal) | CPT/HCPCS: 87081 ==

== ENCOUNTER 2019-05-27 05:10 | Inpatient (IN) | payer SELFPAY ==
[2019-05-27] VITALS (25 sets, daily range): BP systolic 119–153; BP diastolic 72–109
[2019-05-27] MEDS ORDERED: ceFAZolin(*) 2GM/D5W 50ML 50 ML IVPB ONE (05:12)
[2019-05-27] MEDS ORDERED: FAMOTIDINE 20 MG/50 ML PREMIX IVPB ONE (05:15)
[2019-05-27] MEDS ORDERED: METOCLOPRAMIDE 10 MG/2 ML SDV IVP ONE (05:15)
[2019-05-27] MEDS ORDERED: CITRIC ACID/SOD CIT 15 ML UDC PO ONE (05:15)
[2019-05-27] MEDS: LR(*) 1000 ML BAG 1,000 ML IV SCH ×2 (05:43→06:24)
[2019-05-27 06:32] LABS: PLATELET COUNT, AUTOMATED 309 K/uL (150-450)
[2019-05-27] MEDS ORDERED: GLYCOPYRROLATE 0.2MG/ML 1 ML INJ ONE (06:46)
[2019-05-27] MEDS ORDERED: MORPHINE PF 5 MG/10 ML AMP ONE (07:10)
--- NOTE | 2019-05-27 07:33 | History & Physical ---
History of Present Illness EDC per U/S: Jun 01, 2019 Estimated Gestational Age: 39.2 Chief Complaint Scheduled History of Present Illness 34yo at 39w2d presents for scheduled primary CD. She has requested this through the entire . She has chronic pelvic and back pain, endo metriosis and multiple psychiatric diagnoses. She also has a history of genital herpes. For all of these reasons, she has elected to not undergo labor. We have discussed R/B/A of this multiple times and she continues to desire primary CD. See PNR for full H&P. PNC by IMG. History Patient's Blood Type: O Positive Rubella Status: Immune Group B Strep Screen: Negative Obstetrical History: Primip Past Medical History: See PNR Allergies: Coded Allergies: No Known Drug Allergies (Verified , 11/21/18) Social History: . Denies intimate partner violence. Works for [employer]. Denies tobacco, drug use. Occasional alcohol prior to . Family History: FH: breast cancer in first degree relative when <50 years old paternal grandmother FH: congestive heart failure paternal grandmother maternal grandmother FHx: heart disease maternal grandfather Med Rec Home Meds Active Scripts Valacyclovir Hcl (VALTREX) 500 Mg Tablet, 500 MG PO QDAY, #30 TAB 0 Refills Prov:NAN VALENTIN MD 05/07/19 Reported Medications Amphet Asp/Amphet/D-Amphet (ADDERALL 20 MG TABLET) 20 Mg Tablet, 20 MG PO BID 04/11/19 Omeprazole (OMEPRAZOLE) 20 Mg Capsule.dr, 1 CAP PO BID, CAP 04/11/19 Lamotrigine (LAMOTRIGINE) 300 Mg Tab.er.24, 300 MG PO 01/24/19 Acetaminophen (TYLENOL EXTRA STRENGTH) 500 Mg Tablet, 500 MG PO PRN, TAB 10/18/18 Sertraline Hcl (ZOLOFT) 50 Mg Tablet, 1 TAB PO QDAY, TAB 10/18/18 Vits W-Ca,Fe,Fa(<1MG) ( VITAMINS) 1 Each Tablet, 1 EACH PO DAILY, TAB 10/18/18 Caffeine (CAFFEINE) 200 Mg Tablet, 100 MG PO QDAY 07/18/18 Albuterol Sulfate (VENTOLIN HFA) 18 Gm Inh, 1-2 PUFF INH 3-4XD, INH 01/29/18 Hydroxyzine Hcl (HYDROXYZINE HCL) 50 Mg Tablet, 50 MG PO QHS 50-100 mg PO prn 12/20/15 Discontinued Reported Medications Folic Acid/Multivit-Minerals (Women's Multivitamin Gummies) 200 Mcg Tab.chew, 1 EACH PO DAILY 10/18/18 Cholecalciferol (Vitamin D3) (VITAMIN D) 5,000 Unit Tablet, 8000 UNIT PO DAILY 07/18/18 Review of Systems Constitutional: No Fever Neurological: No Syncope Eyes: No Vision Change Cardiovascular: No Chest Pain Respiratory: No Shortness of Breath, No Cough Gastrointestinal: No Nausea, No Vomiting, No Diarrhea Genitourinary: No Dysuria Musculoskeletal: No Pain Psychiatric: Depression, Anxiety Exam General Exam Vital Signs VS reviewed General Apperance: Alert/Awake/No Acute Distress Neuro: No Gross deficits Eyes: Normal Extraocular Movement & Vison Cardiovascular: Regular Rate and Rhythm Respiratory: No Respiratory Distress, Clear to Auscultation Abdomen: Gravid - Non-Tender Musculoskeletal: No Weakness/Pain Extremities: No Cyanosis,Clubbing or Edema Integumentary: Skin Intact without Lesions or Rash Psychological: Alert & Oriented X3, Appropriate Mood & Affect Fetus FHT Category: I Medical Decision Making Data Points Result Diagram: 05/27/19 0618 Assessment and Plan Problems: (1) Chronic pelvic pain in female Assessment & Plan: 34yo at 39w2d presents for scheduled primary CD. She has requested this through the entire . She has chronic pelvic and back pain, endometriosis and multiple psychiatric diagnoses. She also has a history of genital herpes. For all of these reasons, she has elected to not undergo labor. We have discussed R/B/A of this multiple times. Will proceed as scheduled. (2) Chronic back pain (3) 39 weeks gestation of NAN VALENTIN MD May 27, 2019 07:33
[2019-05-27] MEDS ORDERED: ONDANSETRON 4 MG/2 ML VIAL ONE ×2 (07:45→07:48)
[2019-05-27] MEDS ORDERED: OXYTOCIN 10 UNIT/ML SDV ONE (07:48)
[2019-05-27] MEDS ORDERED: PHENYLEPHRINE 10 MG/1 ML VIAL ONE (07:49)
[2019-05-27] MEDS ORDERED: ePHEDrine 25 MG/5 ML DISP.SYR IVP ONE (07:49)
[2019-05-27] MEDS ORDERED: DLR(*) 1000 ML BAG 1,000 ML IV PRN (08:41)
--- NOTE | 2019-05-27 08:41 | Post Operative Note ---
Operative Note - [employer] Operative Day Date: May 27, 2019 Physicians Surgeon: Mirna Wire Temperer: Niharika Anesthesia: Spinal, Jake Jiang Diagnosis Pre-Op Diagnosis: Request for primary CD Chronic back and pelvic pain Hx of genital HSV Post-Op Diagnosis: Same Delivery of viable male at 0754hrs weighing 3848g, Apgars unavailable but baby with low respiratory drive initially after delivery Procedure Procedure(s): Primary CD Fluids Fluids: IVF: 750cc Estimated Blood Loss: 750cc NAN VALENTIN MD May 27, 2019 08:41
[2019-05-27] MEDS ORDERED: ONDANSETRON 4 MG/2 ML VIAL IV PRN (08:45)
[2019-05-27] MEDS ORDERED: LANOLIN OINT 7 GM TUBE TP PRN (08:45)
[2019-05-27] MEDS ORDERED: PROMETHAZINE 25 MG/ML 1 ML AMP IVP PRN (08:45)
[2019-05-27] MEDS ORDERED: INFLUENZA VIRUS VAC 0.5ML SYR IM ONE (08:45)
[2019-05-27] MEDS ORDERED: ACETAMINOPHEN 325 MG TAB PO PRN (08:45)
[2019-05-27] MEDS ORDERED: MAGNESIUM HYDROXIDE* 30ML UDCP PO PRN (08:45)
[2019-05-27] MEDS ORDERED: D10W 250 ML BAG 250 ML IV PRN (08:48)
[2019-05-27] MEDS ORDERED: ERYTHROMYCIN OP OINT 5MG/GM TU OU ONE (08:50)
[2019-05-27] MEDS ORDERED: LIDOCAINE 1% LOCAL 300 MG/30ML INJ PRN (08:50)
[2019-05-27] MEDS ORDERED: PHYTONADIONE NEONATAL 1 MG SYR IM ONE (08:50)
[2019-05-27] MEDS ORDERED: HEPATITIS B PED VACCINE/PF 10 MCG/0.5 ML SYRINGE IM ONLY ONE (08:50)
[2019-05-27] MEDS ORDERED: NS 0.9% NEB 3 ML SOLN INH PRN (08:50)
[2019-05-27] MEDS: KETOROLAC 30 MG/ML VIAL IVP SCH ×3 (09:00→21:20)
--- NOTE | 2019-05-27 09:13 | Anesthesia OB Pre-Anes Eval ---
History of Present Illness Anesthesia Start Date: May 27, 2019 Anesthesia Start Time: 07:22 OB Anesthesia Diagnosis: primary c/section Current Complication: obesity, other (Anxiety/meds) EDC: Jun 01, 2019 : 1 Para: 0 Pain Ratin Result Diagram: 05/27/19 0618 Weight (Pounds): 157 Past Medical History Medical History: obesity, panic attacks, seizures, other (VASO-vagal hx) Surgical History: tonsillectomy, other (wisdom teeth, laparoscopy, colonoscopy) Previous Anesthesia: general Hx Anesthesia Reactions: No Hx Family Anesthesia Reaction: No Current Medications: other (SEE MED REC Axiety disorder meds) Home Meds Active Scripts Valacyclovir Hcl (VALTREX) 500 Mg Tablet, 500 MG PO QDAY, #30 TAB 0 Refills Prov:NAN VALENTIN MD 05/07/19 Reported Medications Amphet Asp/Amphet/D-Amphet (ADDERALL 20 MG TABLET) 20 Mg Tablet, 20 MG PO BID 04/11/19 Omeprazole (OMEPRAZOLE) 20 Mg Capsule.dr, 1 CAP PO BID, CAP 04/11/19 Lamotrigine (LAMOTRIGINE) 300 Mg Tab.er.24, 300 MG PO 01/24/19 Acetaminophen (TYLENOL EXTRA STRENGTH) 500 Mg Tablet, 500 MG PO PRN, TAB 10/18/18 Sertraline Hcl (ZOLOFT) 50 Mg Tablet, 1 TAB PO QDAY, TAB 10/18/18 Vits W-Ca,Fe,Fa(<1MG) ( VITAMINS) 1 Each Tablet, 1 EACH PO DAILY, TAB 10/18/18 Caffeine (CAFFEINE) 200 Mg Tablet, 100 MG PO QDAY 07/18/18 Albuterol Sulfate (VENTOLIN HFA) 18 Gm Inh, 1-2 PUFF INH 3-4XD, INH 01/29/18 Hydroxyzine Hcl (HYDROXYZINE HCL) 50 Mg Tablet, 50 MG PO QHS 50-100 mg PO prn 12/20/15 Discontinued Reported Medications Folic Acid/Multivit-Minerals (Women's Multivitamin Gummies) 200 Mcg Tab.chew, 1 EACH PO DAILY 10/18/18 Cholecalciferol (Vitamin D3) (VITAMIN D) 5,000 Unit Tablet, 8000 UNIT PO DAILY 07/18/18 Allergies: Coded Allergies: No Known Drug Allergies (Verified , 11/21/18) Anesthesia OB ROS Neurological: migraines/headaches, seizures Eyes ROS: other (glasses) ENT: Denies Tooth caps, Denies Loose teeth, Denies Chipped teeth, Denies Dentures, Denies Bridges, Denies Retainers, Denies Veneers, Denies Implants, Denies Tongue ring, Denies Other Pulmonary: No asthma, No smoker (pks/day/yrs), No other Airway Class: ll Cardiovascular ROS: No edema, No arrhythmia, No other GI ROS: NPO Last Solids Date: May 26, 2019 Last Solids Time: 20:00 ROS: Herpes (hx), Other (endometriosis) Endocrine ROS: No diabetes, No gestational diabetes, No thyroid disorder, No other Musculoskeletal ROS: No low back pain, No low back injury, No scoliosis, No other ASA Classification: 2 Assessment and Plan Anesthesia Plan: SAB Anesthesia Stop Day: May 27, 2019 Anesthesia Stop Time: 08:35 RASHEED TREVINO CRNA May 27, 2019 09:13
--- NOTE | 2019-05-27 09:19 | Procedure Note ---
Anesthetic Placement Note Anesthesia Plan: SAB Permit for Anesthesia Signed: Yes Anesthesia Technique: Patient Sitting Anesthesia Prep: Chlorhexidine Interspace: L 4-5 Local Anesthetic: 1% Lidocaine, 25 Gauge Needle Amount Local - cc's: 2 Anesthesia Attempts: 1 Intrathecal Needle: 27 Gauge Pencan Cerebral Spinal Fluid: Yes, Clear Anesthesia Tray: Lot Number ([id number]), Expiration Date (04/07/2020) Anesthesia Medications: Intrathecal Dose: mg Astromorph (0.25), mg Spinal Bupivicaine (9) Complications: None RASHEED TREVINO BIKE DESIGNER May 27, 2019 09:19
--- NOTE | 2019-05-27 09:50 | OPERATIVE REPORT 1 ---
EVENT DATE: May 27, 2019 SURGEON: Kiana Bradley MD ANESTHESIA: Spinal by Jake Jiang CRNA MEDICAL INSURANCE COLLECTOR: Dwight Bundy DO PREOPERATIVE DIAGNOSES 1. Request for primary caesarean delivery. 2. Chronic back and pelvic pain. 3. History of genital herpes simplex virus. POSTOPERATIVE DIAGNOSIS 1. Request for primary caesarean delivery. 2. Chronic back and pelvic pain. 3. History of genital herpes simplex virus. 4. Delivery of viable male at 0754 hours, weighing 3848 grams with Apgars of 7 at one, five and ten minutes. PROCEDURE PERFORMED Primary low transverse caesarean delivery. IV FLUIDS 750 cc. ESTIMATED BLOOD LOSS 750 cc. INDICATIONS FOR PROCEDURE This patient is a 34-year-old 1, para 0 who presented at 39 weeks and 2 days for a scheduled primary caesarean delivery. She had requested this primary caesarean throughout her entire . She has a significant history of chronic pelvic and back pain as well as presumed endometriosis. She also has multiple psychiatric diagnoses and a history of genital herpes. She was particularly concerned about long-term worsening pain should she have a significant obstetrical laceration or other trauma. Therefore, she elected to proceed with a primary caesarean delivery. In addition, she is on multiple psychiatric medications and has been involved with paternal medicine antepartum. The fetus was found to have a small muscular VSD and was sent to [facility] for further evaluation and was cleared to delivery in [place] with our local callisthenics instructor as well as these other providers. DESCRIPTION OF PROCEDURE The patient was properly identified and taken to the operating room. She was administered a spinal anesthetic and then placed in the supine position with a leftward tilt. A Farrell catheter was then placed followed by prep of the abdomen. The abdomen was then draped in a sterile fashion. A time-out was taken, confirming adequate antibiotic prophylaxis and her SCDs were on and running. After adequate anesthesia was confirmed, a low transverse incision was made with the scalpel and carried down to the level of the rectus fascia. The fascia was then nicked in the midline. The incision was extended bilaterally in a blunt fashion. The rectus fascia was from the underlying rectus muscle using a combination of blunt dissection and electrocautery. Once adequate exposure was achieved, the same procedure was done down to the dome of the bladder. The peritoneum was then identified and entered in blunt fashion and this incision was extended to allow adequate exposure. A bladder blade was then placed and the vesicouterine peritoneum was taken down with Metzenbaum scissors. The bladder blade was then replaced and a low transverse incision was made on the lower uterine segment revealing intact membranes, which were clear. These membranes were then ruptured and the infant's vertex was delivered through the uterine incision without any difficulty followed by the anterior shoulder and posterior shoulder. No nuchal cord was noted. The remainder of the infant was then easily delivered. The had spontaneous cry and spontaneous movement of all four extremities. The oropharynx and nasopharynx were bulb suctioned and the infant was dried and stimulated. After 30 seconds, the cord was clamped x2 and cut and the infant was passed to Dr. Lynne in good condition. The placenta was delivered manually intact and passed off the table. The uterus was then exteriorized from the abdomen and cleared of any remaining clots or debris. The uterine incision was reapproximated using an 0 Vicryl working from one apices to the next followed by a second imbricating layer of 0 Monocryl. Two [id number] sutures were required for hemostasis. The uterus was replaced in the abdominal cavity. The pericolic gutters were cleared of clots and debris and the uterine incision was again noted to be hemostatic. The peritoneum was then reapproximated using a 3-0 Monocryl followed by reapproximation of the rectus muscle in the midline. Copious irrigation of the muscle was performed and hemostasis was assured. The rectus fascia was then reapproximated using an 0 Vicryl working from one apices to the next. The subcutaneous tissue was then copiously irrigated and noted to be hemostatic. The subcutaneous tissue was reapproximated using a 3-0 Monocryl followed by closure of the skin with Insorb ciara. A Primapore dressing was placed followed by a pressure dressing. The patient tolerated this procedure well and was able to recover in the labor and delivery. All sponge, needle and instrument counts were correct at the end of this procedure. Of note, the infant did have difficulty with respiratory transition. His heart rate was good throughout his first few minutes of life but his respiratory drive was down. At the time of this dictation, he was in the nursery and being evaluated for high-flow oxygen. [facility] HEALTHJenise
[2019-05-27] MEDS: oxyCODON/ACET (*)5/325MG (CII) 1 TAB TAB PO PRN ×4 (11:52→22:19)
[2019-05-27] MEDS: DOCUSATE CALCIUM 240 MG CAP PO SCH ×2 (11:52→21:20)
[2019-05-27] MEDS ORDERED: LAMO150T36 PO (12:05)
--- NOTE | 2019-05-27 15:04 | OB/GYN Progress Note ---
OB Subjective Progress Notes Subjective Pt is having increased blood pressure today. She denies preeclampsia symptoms. Pain is relatively controlled. Farrell catheter in place. Tolerating po. OB Objective Physical Exam Vital Signs Date Time Temp Pulse Resp B/P (MAP) Pulse Ox O2 Delivery O2 Flow Rate FiO2 05/27/19 14:40 97.8 94 17 131/101 (111) 94 Room Air 05/27/19 09:15 1.0 General Appearance: Alert/Awake/No Acute Distress Neurological: No Gross deficits Eyes: Normal Extraocular Movement & Vison Cardiovascular: Normal Rhythm & Peripheral Pulses, Regular Rate and Rhythm Respiratory: No Respiratory Distress, Clear to Auscultation Abdomen: Soft, Non-Tender, Non-Distended, Fundus Firm Incision: Clean, Dry, Intact, Dressing Extremities: No Cyanosis,Clubbing or Edema Integumentary: Skin Intact without Lesions or Rash Psychological: Alert & Oriented X3, Appropriate Mood & Affect Result Diagram: 05/27/19 0618 Assessment and Plan Problems: (1) Status post primary low transverse section Assessment & Plan: POD#0 s/p PLTCD. She is having increased blood pressure. Will order labs and urine evaluation to evaluate for GHTN versus preeclampsia. Will plan BP Q2hrs or more often as needed. Monitor for preeclampsia symptoms. Otherwise, routine orders. (2) Chronic pelvic pain in female (3) Chronic back pain NAN VALENTIN MD May 27, 2019 15:04
[2019-05-27 15:37] LABS: PLATELET COUNT, AUTOMATED 297 K/uL (150-450)
--- NOTE | 2019-05-27 16:08 | OB/GYN Progress Note ---
OB Subjective Progress Notes Subjective Pt is up in a chair in the nursery with her baby. She is feeling well. Low grade headache but I suspect this is more fatigue related. She is tolerating po. No other preeclampsia symptoms. Farrell still in. OB Objective Physical Exam Vital Signs Date Time Temp Pulse Resp B/P (MAP) Pulse Ox O2 Delivery O2 Flow Rate FiO2 05/27/19 14:40 97.8 94 17 131/101 (111) 94 Room Air 05/27/19 09:15 1.0 General Appearance: Alert/Awake/No Acute Distress Neurological: No Gross deficits Eyes: Normal Extraocular Movement & Vison Cardiovascular: Normal Rhythm & Peripheral Pulses, Regular Rate and Rhythm Respiratory: No Respiratory Distress, Clear to Auscultation Abdomen: Soft, Non-Tender, Non-Distended, Fundus Firm Incision: Clean, Dry, Intact, Dressing Extremities: No Cyanosis,Clubbing or Edema Integumentary: Skin Intact without Lesions or Rash Psychological: Alert & Oriented X3, Appropriate Mood & Affect Result Diagram: 05/27/19 1516 05/27/19 1516 Assessment and Plan Problems: (1) Status post primary low transverse section Assessment & Plan: POD#0 s/p PLTCD. She is having increased blood pressure. Labs are normal, urine evaluation is still pending to evaluate for GHTN versus preeclampsia. Will plan BP Q2hrs or more often as needed. Monitor for preeclampsia symptoms. Otherwise, routine orders. (2) Chronic pelvic pain in female (3) Chronic back pain NAN VALENTIN MD May 27, 2019 16:08
[2019-05-27] MEDS: SIMETHICONE 80 MG CHEW CHEW PRN (19:07)
[2019-05-27] MEDS: FAMOTIDINE 20 MG TAB PO SCH (21:20)
[2019-05-27] MEDS: hydrOXYzine 25 MG TAB PO SCH (21:20)
[2019-05-27] MEDS: LAMOTRIGINE 150 MG TAB PO SCH (21:38)
[2019-05-28] VITALS (9 sets, daily range): BP systolic 131–146; BP diastolic 72–101
[2019-05-28] MEDS: oxyCODON/ACET (*)5/325MG (CII) 1 TAB TAB PO PRN ×4 (02:08→22:21)
[2019-05-28] MEDS: IBUPROFEN 800 MG TAB PO SCH ×3 (03:45→20:55)
[2019-05-28 07:24] LABS: PLATELET COUNT, AUTOMATED 290 K/uL (150-450)
[2019-05-28] MEDS: DEXTROAMPHETAMINE/AMPHETAMINE 20 MG TABLET PO SCH ×2 (08:16→17:00)
[2019-05-28] MEDS ORDERED: valACYclovir HCL 500 MG TAB PO SCH (09:00)
[2019-05-28] MEDS ORDERED: LAMOTRIGINE 150 MG TAB PO SCH (09:00)
--- NOTE | 2019-05-28 09:20 | OB/GYN Progress Note ---
OB Subjective Progress Notes Subjective Doing well. Pain controlled with oral medications. Tolerating regular diet. Ambulating. Voiding. Minimal vaginal bleeding. No chest pain, shortness of breath or dizziness. OB Objective Physical Exam Vital Signs Date Time Temp Pulse Resp B/P (MAP) Pulse Ox O2 Delivery O2 Flow Rate FiO2 05/28/19 07:45 97.7 93 18 146/94 (111) 97 Room Air 05/28/19 07:45 1.0 Intake and Output 05/28/19 07:04 Intake Total 1580 ml Output Total 2300 ml Balance -720 ml Intake Oral 1580 ml Output Urine Total 2300 ml # Voids 3 General Appearance: Alert/Awake/No Acute Distress Neurological: No Gross deficits Eyes: Normal Extraocular Movement & Vison Cardiovascular: Normal Rhythm & Peripheral Pulses, Regular Rate and Rhythm Respiratory: No Respiratory Distress, Clear to Auscultation Abdomen: Soft, Non-Tender, Non-Distended, Fundus Firm Incision: Other (Binder on) Extremities: No Cyanosis,Clubbing or Edema Integumentary: Skin Intact without Lesions or Rash Psychological: Alert & Oriented X3, Appropriate Mood & Affect Result Diagram: 05/28/19 0642 05/27/19 1516 Assessment and Plan Problems: (1) Status post primary low transverse section Assessment & Plan: POD#1 s/p PLTCD. She has increased blood pressure but normal proteinuria. This is consistent with GHTN. Will monitor BP but not yet at a level to start medications. Continue routine orders. May consider discharge tomorrow depending on how her BP looks. Baby is still in nursery on small amount of oxygen. The poultry field service technician will discharge him to the room today and thinks he may be ready for discharge to home tomorrow. (2) Chronic pelvic pain in female (3) Chronic back pain NAN VALENTIN MD May 28, 2019 09:20
[2019-05-28] MEDS ORDERED: IBUP800T37 PO (09:22)
[2019-05-28] MEDS ORDERED: OXYC-865 PO (09:22)
[2019-05-28] MEDS: MULTIVITAMINS (PRENATAL) TAB PO SCH (09:43)
[2019-05-28] MEDS: SERTRALINE HCL 50 MG TAB PO SCH (09:43)
[2019-05-28] MEDS: FAMOTIDINE 20 MG TAB PO SCH ×2 (09:43→20:55)
[2019-05-28] MEDS: DOCUSATE CALCIUM 240 MG CAP PO SCH ×2 (09:43→20:54)
[2019-05-28] MEDS: HYDROmorphone HCL 2 MG TAB PO PRN ×2 (09:43→17:01)
--- NOTE | 2019-05-28 10:47 | Anesthesia Post Eval Note ---
Anesthesia Post Eval Note Pt able to participate in Eval: Yes Cardiovascular Status: Satisfactory Respiratory Status: Satisfactory Pain Managment: Satisfactory PO Nausea/Vomiting: Satisfactory Temperature Management: Satisfactory Mental Status: Satisfactory, Alert, Oriented X3 Post-Op Hydration Status: Satisfactory, Tolerating PO Well, Voiding w/o Difficulty Anesthesia Type: RASHEED ELY CRNA May 28, 2019 10:47
[2019-05-28] MEDS: SIMETHICONE 80 MG CHEW CHEW PRN (15:49)
[2019-05-28] MEDS ORDERED: diphenhydrAMINE 25 MG CAP PO ONE ×2 (21:15→21:35)
[2019-05-28] MEDS ORDERED: valACYclovir HCL 500 MG TAB PO ONE (21:15)
[2019-05-28] MEDS: hydrOXYzine 25 MG TAB PO SCH (21:25)
[2019-05-28] MEDS: LAMOTRIGINE 150 MG TAB PO SCH (21:26)
[2019-05-29] MEDS: IBUPROFEN 800 MG TAB PO SCH (02:57)
[2019-05-29 03:05] VITALS: BP 130/93
[2019-05-29] MEDS: oxyCODON/ACET (*)5/325MG (CII) 1 TAB TAB PO PRN (05:13)
[2019-05-29 07:15] VITALS: BP 147/91
--- NOTE | 2019-05-29 08:17 | OB/GYN Progress Note ---
OB Subjective Progress Notes Subjective Doing well. Pain controlled with oral medications. Tolerating regular diet. Ambulating. Voiding. Normal lochia. No preeclampsia symptoms. OB Objective Physical Exam Vital Signs Date Time Temp Pulse Resp B/P (MAP) Pulse Ox O2 Delivery O2 Flow Rate FiO2 05/29/19 03:05 97.9 92 16 130/93 (105) 92 Room Air 05/28/19 07:45 1.0 Intake and Output 05/29/19 07:04 Intake Total 2900 ml Output Total 1500 ml Balance 1400 ml Intake Oral 2900 ml Output Urine Total 1500 ml # Voids 7 General Appearance: Alert/Awake/No Acute Distress Neurological: No Gross deficits Eyes: Normal Extraocular Movement & Vison Cardiovascular: Normal Rhythm & Peripheral Pulses, Regular Rate and Rhythm Respiratory: No Respiratory Distress, Clear to Auscultation Abdomen: Soft, Non-Tender, Non-Distended, Fundus Firm Incision: Clean, Dry, Intact Extremities: No Cyanosis,Clubbing or Edema Integumentary: Skin Intact without Lesions or Rash Psychological: Alert & Oriented X3, Appropriate Mood & Affect Result Diagram: 05/28/19 0642 05/27/19 1516 Assessment and Plan Problems: (1) Status post primary low transverse section Assessment & Plan: POD#2 s/p PLTCD. Meeting milestones. Desires discharge to home today. Discussed routine expectations. Questions answered. Follow up in clinic in 1wk for BP check and 2wks for check. (2) Chronic pelvic pain in female (3) Chronic back pain NAN VALENTIN MD May 29, 2019 08:17
--- NOTE | 2019-05-29 08:18 | OB/GYN Discharge Summary ---
Discharge Summary Reason for Hosp/Final Diag: (1) Status post primary low transverse section Hospital Course & Plan: POD#2 s/p PLTCD. Meeting milestones. Desires discharge to home today. Discussed routine expectations. Questions answered. Follow up in clinic in 1wk for BP check and 2wks for check. (2) Chronic pelvic pain in female (3) Chronic back pain Lates Vital Signs Vital Signs Date Time Temp Pulse Resp B/P (MAP) Pulse Ox O2 Delivery O2 Flow Rate FiO2 05/29/19 03:05 97.9 92 16 130/93 (105) 92 Room Air 05/28/19 07:45 1.0 Weight (Pounds): 157 Result Diagram: 05/28/19 0642 05/27/19 1516 Condition: Improved Discharge: Home, Self Long Term Meds Active Scripts Oxycodone Hcl/Acetaminophen (PERCOCET 5-325 MG TABLET) 1 Each Tablet, 1 TAB PO Q4-6H PRN for pain, #30 TAB 0 Refills Prov:NAN VALENTIN MD 05/28/19 Valacyclovir Hcl (VALTREX) 500 Mg Tablet, 500 MG PO QDAY, #30 TAB 0 Refills Prov:NAN VALENTIN MD 05/07/19 Reported Medications Lamotrigine (LAMOTRIGINE) 150 Mg Tablet, 300 MG PO QDAY 05/27/19 Amphet Asp/Amphet/D-Amphet (ADDERALL 20 MG TABLET) 20 Mg Tablet, 20 MG PO BID 04/11/19 Omeprazole (OMEPRAZOLE) 20 Mg Capsule.dr, 1 CAP PO BID, CAP 04/11/19 Acetaminophen (TYLENOL EXTRA STRENGTH) 500 Mg Tablet, 500 MG PO PRN, TAB 10/18/18 Sertraline Hcl (ZOLOFT) 50 Mg Tablet, 1 TAB PO QDAY, TAB 10/18/18 Vits W-Ca,Fe,Fa(<1MG) ( VITAMINS) 1 Each Tablet, 1 EACH PO DAILY, TAB 10/18/18 Caffeine (CAFFEINE) 200 Mg Tablet, 100 MG PO QDAY 07/18/18 Albuterol Sulfate (VENTOLIN HFA) 18 Gm Inh, 1-2 PUFF INH 3-4XD, INH 01/29/18 Hydroxyzine Hcl (HYDROXYZINE HCL) 50 Mg Tablet, 50 MG PO QHS 50-100 mg PO prn 12/20/15 Discontinued Reported Medications Lamotrigine (LAMOTRIGINE) 300 Mg Tab.er.24, 300 MG PO 01/24/19 Folic Acid/Multivit-Minerals (Women's Multivitamin Gummies) 200 Mcg Tab.chew, 1 EACH PO DAILY 10/18/18 Cholecalciferol (Vitamin D3) (VITAMIN D) 5,000 Unit Tablet, 8000 UNIT PO DAILY 07/18/18 Follow up Referrals: VET TECH - In Two Weeks @ [facility] with NAN VALENTIN MD Discharge Diet: As Tolerates Discharge Activity: No Heavy Lifting > 10lb Special Instructions: BP Check first part of next week with NAN ANTON MD May 29, 2019 08:18
[2019-05-29] MEDS ORDERED: MEASLES,MUMP,RUBELLA VAC 0.5ML SUBQ ONE (08:45)
[2019-05-29] MEDS ORDERED: DIPHTH/TETANUS/ACEL. PERTUSSIS IM ONLY ONE (08:55)
[2019-05-29] MEDS: FAMOTIDINE 20 MG TAB PO SCH (09:25)
[2019-05-29] MEDS: SERTRALINE HCL 50 MG TAB PO SCH (09:25)
[2019-05-29] MEDS: DOCUSATE CALCIUM 240 MG CAP PO SCH (09:25)
[2019-05-29] MEDS: MULTIVITAMINS (PRENATAL) TAB PO SCH (09:25)
[2019-05-29] MEDS: DEXTROAMPHETAMINE/AMPHETAMINE 20 MG TABLET PO SCH (09:26)
== END 2019-05-29 10:00 | disposition home or self-care (01) | DRG 787 ==
LOC: OB 05:10
PROVIDERS: ADMIT Obstetrics & Gynecology; ATTEND Obstetrics & Gynecology
PROC: 10D00Z1 Extraction of Products of Conception, Low, Open Approach (ICD-10-PCS; principal; 2019-05-27 07:22)
DX: O99.344 Other mental disorders complicating childbirth (principal); O98.32 Other infections with a predominantly sexual mode of transmission complicating childbirth; G89.29 Other chronic pain; A60.00 Herpesviral infection of urogenital system, unspecified; F41.9 Anxiety disorder, unspecified; Z3A.39 39 weeks gestation of pregnancy; Z37.0 Single live birth
CPT/HCPCS: 36415; 82040; 82247; 82310; 82374; 82435; 82565; 82570; 82947; 84075; 84132; 84155; 84156; 84295; 84450; 84460; 84520; 85025; 86850; 86900; 86901; J0690; J1885; J2270; J2370; J2405; J2590; J2765; J3490; J7120; Q0163